=== PATIENT | female | born 1990 | race Caucasian/White ===

== ENCOUNTER → 2017-08-18 | Outpatient (REF) | payer OTHER | LOC: M LAB REF 08:58 | DX: J06.9 Acute upper respiratory infection, unspecified (principal) ==

== ENCOUNTER → 2017-11-29 | Outpatient (REF) | payer OTHER | LOC: M SFHCLERA 11:51 | DX: R50.9 Fever, unspecified (principal) ==

== ENCOUNTER 2019-05-11 05:57 | Day surgery (SDC) | payer OTHER ==
[~2019-05-11] VITALS: Ht 167.6 cm; Wt 64.4 kg
[~2019-05-11 05:57] MED LIST: FLON1SPR
[2019-05-11] MEDS ORDERED: MIDAZOLAM INJ 2 MG/2 ML VIAL (J2250) As Ordered ONE (06:40)
[2019-05-11] MEDS ORDERED: fentaNYL 100 MCG/2 ML INJECTION (J3010) As Ordered ONE (06:41)
[2019-05-11] MEDS ORDERED: LIDOCAINE 2% INJ 100 MG/5 ML SDV (FOR ANES.) As Ordered ONE (06:42)
[2019-05-11] MEDS ORDERED: propofoL 200 MG/20 ML VIAL As Ordered ONE (06:42)
[2019-05-11 06:53] LABS: HCG, SERUM QUALITATIVE NEGATIVE (NEGATIVE)
[2019-05-11] MEDS ORDERED: IODINE STRONG SOLN 15 ML BTL As Ordered ONE (06:55)
[2019-05-11] MEDS ORDERED: LIDOCAINE W/EPINEPHRINE 1% 20ML VIAL As Ordered ONE (06:55)
[2019-05-11] MEDS ORDERED: LR 1,000 ML IV ONE (07:00)
[2019-05-11 07:45] LABS: HEMATOCRIT 38.6 % (36.0-47.0)
[2019-05-11 09:20] VITALS: BP 112/70
--- NOTE | 2019-05-11 15:22 | RO ---
DATE OF PROCEDURE: 05/11/2019 INDICATIONS FOR OPERATION: Samantha is a 28-year-old G0, who was found to have an abnormal Pap smear with followup colposcopy that showed high grade squamous intraepithelial lesion she was counseled on treatment options and was amendable to the recommendation for a loop electrosurgical excision procedure (LEEP) procedure. PREOPERATIVE DIAGNOSIS: HGSIL of the cervix. POSTOPERATIVE DIAGNOSIS: HGSIL of the cervix SURGEON: Dr. Elsie Gibbons. ANESTHESIA: Monitored anesthesia care (MAC). MATERIALS FORWARDED TO THE LAB FOR EXAMINATION: 1. Superficial LEEP. 2. Deep LEEP. DESCRIPTION OF FINDINGS: There was a central nonstaining portion of the cervix when Lugol's was applied. Infection classification II. ESTIMATED BLOOD LOSS: 10 mL IV FLUIDS: 500 mm of lactated Ringer's. URINE OUTPUT: Not measured OPERATION PERFORMED: LEEP. DESCRIPTION OF OPERATION: After obtaining informed consent the patient was taken to the operating room where she underwent MAC anesthesia. She was placed in low lithotomy position. The perineum and vagina were prepped and draped in sterile fashion. Time-out was performed to confirm patient name, date of and procedure. The operating room (OR) team was in agreement. Coated speculum was inserted into the vagina and Lugol's solution was applied to the cervix. The central nonstaining portion was noted. At that point approximately 8 mL of 1% lidocaine with epinephrine were injected for an intracervical block. The LEEP was completed in two passes once superficial, the other deep and electrocautery was applied to the LEEP bed with adequate hemostasis. Monsel's solution was applied afterwards, again noting hemostasis. The patient tolerated the procedure well. Specimens were sent to pathology. She was awakened from anesthesia and taken to the recovery room in good condition. All counts were correct times two. Vaginal sweep revealed nothing retained.
== END 2019-05-11 09:37 | disposition home or self-care (01) ==
LOC: M SDC 05:57
PROVIDERS: ATTEND Obstetrics & Gynecology
DX: N87.1 Moderate cervical dysplasia (principal); Z79.899 Other long term (current) drug therapy
CPT/HCPCS: 36415; 57522; 84703; 85014; 85018; 86850; 86900; 86901; 88307; J2250; J3010